=== PATIENT | male | born 1955 ===

== ENCOUNTER 2020-06-30 18:16 | Outpatient (REF) | payer OTHER, SELFPAY ==
[2020-07-05 00:03] LABS: SARS-CoV-2 RNA Undetected (Undetected)
== END 2020-06-30 18:36 ==
LOC: NCHCN 18:16
PROVIDERS: PCP Nurse Practitioner Family; Visit Provider Nurse Practitioner Family
DX: Z20.828 Contact with and (suspected) exposure to other viral communicable diseases (principal)
CPT/HCPCS: U0003